=== PATIENT | female | born 1985 | race Caucasian/White ===

== ENCOUNTER 2017-08-11 05:51 | Emergency (ER) | payer BC ==
[~2017-08-11] VITALS: Ht 157.5 cm; Wt 104.8 kg
[2017-08-11 05:58] VITALS: TEMP 36.5; Ht 157.5 cm; Wt 104.8 kg
[2017-08-11] MEDS ORDERED: ACETAMINOPHEN 500 MG TAB PO STA (06:10)
[2017-08-11] MEDS ORDERED: AZITHROMYCIN 250 MG TAB PO STA (06:10)
--- NOTE | 2017-08-11 06:14 | EMERGENCY ROOM VISIT NOTE ---
History First contact with patient: 06:06 Chief Complaint: EAR PAIN Stated Complaint: SEVERE EAR ACHE History of Present Illness The patient is a 32 year old female who presents to the Emergency Room with complaints of cold symptoms for the past few days who developed right ear pain last night. Patient denies chest pain, dyspnea, neck stiffness, sore throat, abdominal pain. She is tolerating p.o. fluids and food. Review of Systems An 10 system review of systems was completed with positives and pertinent negatives listed in the HPI. Past Medical/Surgical History Asthma, allergies Social History Smoking Status: Never Smoker Drug Use: none Marital Status: Housing Status: lives with family Current/Historical Medications Scheduled Azithromycin (Zithromax), 250 MG PO DAILY Control Pills ( Control Pills), 1 TAB PO DAILY Cholecalciferol (Vitamin D3), 1,000 UNITS PO DAILY Uvjarlrnyut-Blzetljqggx-Svz C- (Glucosamine Chondroitin), 1 CAP PO DAILY Levocetirizine Dihydrochloride (Xyzal), 5 MG PO DAILY Melatonin (Melatonin Maximum Strengt), 5 MG PO HS Montelukast Sodium (Singulair), 10 MG PO DAILY Multiple Vitamins W/ Minerals (Hair/Skin/Nails), 1 TAB PO DAILY Physical Exam Vital Signs Date Time Temp Pulse Resp B/P (MAP) Pulse Ox O2 Delivery O2 Flow Rate FiO2 18 05:58 36.5 79 16 168/117 96 Room Air Physical Exam VITALS: Vitals are noted on the nurse's note and reviewed by myself. Vital signs hypertensive. GENERAL: Pleasant female, in no acute distress, nondiaphoretic, well-developed well-nourished. SKIN: The skin was without rashes, erythema, edema, or bruising. There is no tenting of the skin. Capillary reflex less than 2 seconds. HEAD: Normocephalic atraumatic. EARS: Right tympanic membrane bulging consistent with otitis media, left external auditory canals clear, tympanic membranes pearly velez without erythema or effusion, no mass or tenderness bilaterally. EYES: Pupils equal round and reactive to light and accommodation. Conjunctivae without injection, sclerae without icterus. Extraocular movements intact. NOSE: Patent, turbinates without inflammation or discharge. No sinus tenderness. MOUTH: Mucous membranes moist. Pharynx without erythema or exudate. Uvula midline. Airway patent. Tongue does not deviate. NECK: Supple without nuchal rigidity. No lymphadenopathy. No thyromegaly. Cervical spine is nontender. No JVD. HEART: Regular rate and rhythm without murmurs gallops or rubs. LUNGS: Clear to auscultation bilaterally without wheezes, rales or rhonchi. No retractions or accessory muscle use. ABDOMEN: Positive bowel sounds x 4. Normal tympanic percussion. Soft, nontender, without masses or organomegaly. Thomason sign negative. No guarding or rebound tenderness. No CVA tenderness MUSCULOSKELETAL: No muscle atrophy, erythema, or edema noted. NEURO: Patient was alert and oriented to person place and time. Normal sensation to light and sharp touch. No focal neurological deficits. Medical Decision & Procedures ED Course Prior records/ancillary studies reviewed. Triage Nursing notes reviewed. Additional history obtained from family The patient's history was concerning for a cold symptoms with ear pain. Differential diagnosis: Etiologies such as viral syndrome, tonsillitis, streptococcal pharyngitis, mononucleosis, peritonsillar abscess, retropharyngeal abscess, otitis, pneumonia , influenza, as well as others were entertained. ER treatment provided: Tylenol, Zithromax, Motrin. Patient states she is not allergic to Motrin and can take this. She has taken this in the past. On reassessment the patient felt better. Diagnostics interpreted by me: Deferred This appears to be consistent with otitis. Patient states she cannot take penicillins or cephalosporins. She started on Z-Reji. She is advised to take Tylenol for the pain and follow-up family care in a few days here in the ER sooner for severe pain, fevers, neck stiffness, worsening sinus symptoms or as needed. Patient was informed to monitor her blood pressure. By the evaluation outlined above emergent etiologies such as peritonsillar abscess, retropharyngeal abscess, pneumonia, meningitis, urinary tract infection, sepsis, bacteremia, as well as others were deemed relatively unlikely. The pt informed about the findings as listed above. All questions were answered and pleased with the treatment. Return instructions were outlined and the patient was discharged in stable condition. Outpatient prescription management: Zithromax Referral: The patient was referred back to their primary care physician for follow-up in 2 to 3 days for a recheck of the current condition. The chart was completed utilizing [employer] voice recognition software. Grammatical errors, random word insertions, pronoun errors, and incomplete sentences are an occassional consequence of this system due to software limitations, ambient noise, and hardware issues. Any formal questions or concerns about the content, text, or information contained within the body of this dictation should be directly addressed to the physician mailing machine assistant for clarification. Medical Decision As above Medication Reconcilliation Current Medication List: was personally reviewed by me Blood Pressure Screening Patient's blood pressure: Elevated blood pressure Blood pressure disposition: Elevated BP felt to be situational Impression Primary Impression: Acute right otitis media Departure Information Dispostion Home / Self-Care Condition GOOD Prescriptions Azithromycin (ZITHROMAX) 250 Mg Tab 250 MG PO DAILY for 4 Days, #4 TAB Prov: Ally Boogie ., RAIMUNDO 08/11/17 Referrals No Doctor, Assigned (PCP) Patient Instructions [facility] Additional Instructions Zithromax: 1 table daily for 4 days.Any medication can cause an allergic reaction, stop the pills immediately and return to the ER for rash, hives, breathing difficulties, or swelling. Acetaminophen(Tylenol) may be used for fever or pain. Use 1000mg every six hours as needed. Avoid using more than 3000mg in a 24 hour period. Afrin nasal spray: 2-3 sprays to each nostril twice daily as needed for congestion. Do not use for more than 3-4 days because it can lead to worsening rebound congestion. Pseudoephedrine(Sudaphed): 30-60mg every 6 hours as needed for nasal congestion. Do not take this with other stimulant products or supplements. Albuterol Inhaler: Take 2 puffs four times daily for seven days, then as needed. Rest and drink plenty of fluids. Controlling your fever with Tylenol and Ibuprofen as above will make you feel better. Wash your hands after nose blowing, sneezing, or coughing. Most germs are spread through contact, therefore improper hygiene may result in your close contacts and loved ones becoming ill just like you. Continue current medications. Return to the ER for severe headache, neck stiffness, chest pain, difficulty breathing, fevers, vomiting, worsening of your condition, or as needed. Follow up with your primary physician this week for a recheck of your current condition.
[2017-08-11] MEDS ORDERED: GLUC1CAP35 PO (06:15)
[2017-08-11] MEDS ORDERED: MONT1TAB3 PO (06:15)
[2017-08-11] MEDS ORDERED: MULT-580 PO (06:15)
[2017-08-11] MEDS ORDERED: CHOL1000 PO (06:15)
[2017-08-11] MEDS ORDERED: BCPILLS PO (06:15)
[2017-08-11] MEDS ORDERED: LEVO5TAB2 PO (06:15)
[2017-08-11] MEDS ORDERED: MELATAB2 PO (06:15)
[2017-08-11] MEDS ORDERED: IBUPROFEN 600 MG TAB PO STA (06:20)
[2017-08-11] MEDS ORDERED: AZIT-60 PO (06:20)
[2017-08-11 06:28] VITALS: BP 146/99; PULSE 82; O2SAT 96
== END 2017-08-11 06:29 | disposition home or self-care (01) ==
LOC: C.EDB 05:59 → MERGE 05:59 → C.EDB 06:29
DX: H66.91 Otitis media, unspecified, right ear (principal); J45.909 Unspecified asthma, uncomplicated; Z79.3 Long term (current) use of hormonal contraceptives; Z79.899 Other long term (current) drug therapy